=== PATIENT | male | born 1945 | race Caucasian/White ===

== ENCOUNTER 2019-01-08 17:05 | Emergency (ER) | payer MEDICARE, OTHER ==
[~2019-01-08] VITALS: Ht 182.9 cm; Wt 102.3 kg
[2019-01-08 17:13] VITALS: Ht 182.9 cm; Wt 102.3 kg
[2019-01-08] MEDS ORDERED: CYMBALTA30 MG (17:15)
[2019-01-08] MEDS ORDERED: LIPITOR20 MG (17:15)
[2019-01-08] MEDS ORDERED: VITAMIN B-12500 MCG (17:15)
[2019-01-08] MEDS ORDERED: BAYER CHEWABLE81 MG (17:15)
[2019-01-08] MEDS ORDERED: LASIX40 MG (17:15)
[2019-01-08] MEDS ORDERED: NORVASC10 MG (17:15)
[2019-01-08] MEDS ORDERED: ISOSORBIDE MONO30 M1 (17:16)
[2019-01-08] MEDS ORDERED: LISINOPRIL40 MG (17:16)
[2019-01-08] MEDS ORDERED: PROVERA10 MG (17:16)
[2019-01-08] MEDS ORDERED: CLARITIN 10 MG10 MG (17:16)
[2019-01-08] MEDS ORDERED: HYTRIN5 MG (17:17)
[2019-01-08] MEDS ORDERED: KLOR-CON 1010 MEQ (17:17)
[2019-01-08 21:41] VITALS: BP 168/82
== END 2019-01-08 20:54 ==
LOC: D.ER 17:05
DX: S00.83XA Contusion of other part of head, initial encounter (principal); Y09 Assault by unspecified means; Y92.129 Unspecified place in nursing home as the place of occurrence of the external cause; E11.9 Type 2 diabetes mellitus without complications; I11.0 Hypertensive heart disease with heart failure; I50.9 Heart failure, unspecified

== ENCOUNTER 2019-02-14 16:32 | Inpatient (IN) | payer MEDICARE, OTHER ==
[~2019-02-14] VITALS: Ht 182.9 cm; Wt 107.5 kg
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
[~2019-02-14 16:32] MED LIST: BAYER CHEWABLE81 MG; CLARITIN 10 MG10 MG; CYMBALTA30 MG; HYTRIN5 MG; ISOSORBIDE MONO30 M1; KLOR-CON 1010 MEQ; LASIX40 MG; LIPITOR20 MG; LISINOPRIL40 MG; NORVASC10 MG; PROVERA10 MG; VITAMIN B-12500 MCG
[2019-02-14 17:07] LABS: BASOPHILS 0.3 % (0-2); EOSINOPHILS 2.8 % (0-7); HEMATOCRIT 39.7 % (42.0-54.0); HEMOGLOBIN 13.4 g/dL (13.5-17.5); IMMATURE GRANULOCYTES 0.3 % (0-5); LYMPHOCYTES 16.6 % (15-50); MCH 30.9 pg (26.0-34.0); MCHC 33.8 g/dL (31.0-37.0); MCV 91.5 fL (80.0-100.0); MEAN PLATELET VOLUME 9.7 fL (7.4-10.4); MONOCYTES 11.6 % (2-11); NEUTROPHILS 68.4 % (40-80); PLATELET COUNT 219 10x3/uL (130-400); RBC 4.34 10x6/uL (4.20-6.10); RDW 14.1 % (11.5-14.5); WBC 11.6 10x3/uL (4.8-10.8)
[2019-02-14 17:18] LABS: ANION GAP 11.1 mmol/L (8-16); CALCIUM 8.6 mg/dL (8.5-10.1); CARBON DIOXIDE 28.8 mmol/L (21.0-32.0); CREATININE - SERUM 1.3 mg/dL (0.6-1.3); POTASSIUM - SERUM 3.9 mmol/L (3.5-5.1)
[2019-02-14 17:50] LABS: ALBUMIN 2.8 g/dL (3.4-5.0); BILIRUBIN - TOTAL 0.6 mg/dL (0.2-1.3); PROTEIN - SERUM 5.9 g/dL (6.4-8.2); THYROID STIMULATING HORMONE 2.11 uIU/mL (0.36-3.74)
[2019-02-14 19:42] LABS: UDS - AMPHET NEGATIVE QUAL (NEGATIVE); UDS - BARB NEGATIVE QUAL (NEGATIVE); UDS - BENZO NEGATIVE QUAL (NEGATIVE); UDS - COCAINE NEGATIVE QUAL (NEGATIVE); UDS - OPIATE NEGATIVE QUAL (NEGATIVE); UDS - PCP NEGATIVE QUAL (NEGATIVE); UDS - THC NEGATIVE QUAL (NEGATIVE)
[2019-02-14 19:45] LABS: APPEARANCE CLEAR (CLEAR); BILIRUBIN NEGATIVE (NEGATIVE); COLOR YELLOW (YELLOW); GLUCOSE NEGATIVE (NEGATIVE); KETONE NEGATIVE (NEGATIVE); NITRITE NEGATIVE (NEGATIVE); PROTEIN NEGATIVE (NEGATIVE); SPECIFIC GRAVITY 1.015 (1.005-1.020); UROBILINOGEN NORMAL (NORMAL)
--- NOTE | 2019-02-14 20:04 | NUR ---
SPOKE W/KALA RN IN [facility] FOR PLACEMENT AND CHART FAXED.
--- NOTE | 2019-02-14 20:49 | NUR ---
PT ACCEPTED BY [facility]-TERM, DR. HAYNES, PER KALA WHITEHEAD.
[2019-02-14 23:07] VITALS: BP 126/80; BMI 30.9
[2019-02-14 23:26] LABS: CHOL - HDL RATIO 2.8 ratio (2.3-4.9); LDL-HDL RATIO 1.5 ratio (1.5-3.5)
[2019-02-14] MEDS ORDERED: LISINOPRIL20 MG PO (23:45)
[2019-02-14] MEDS ORDERED: PRADAXA150 MG PO (23:46)
[2019-02-14] MEDS ORDERED: OPTIVE SENSITI1 EACH EACH EYE (23:46)
[2019-02-14] MEDS ORDERED: COREG12.5 MG PO (23:48)
[2019-02-14] MEDS ORDERED: VITAMIN D31000 UNIT PO (23:48)
[2019-02-14] MEDS ORDERED: DEPAKENE 2250 MG/5 M (23:52)
[2019-02-14] MEDS ORDERED: FOLIC ACID1 MG PO (23:54)
[2019-02-14] MEDS ORDERED: LASIX40 MG PO (23:54)
[2019-02-14] MEDS ORDERED: GABAPENTIN100 MG PO (23:56)
[2019-02-14] MEDS ORDERED: ADVIL200 MG PO (23:56)
[2019-02-15] MEDS ORDERED: HUMULIN N100 U/ML SC ×2 (00:01→00:02)
[2019-02-15] MEDS ORDERED: COMBIVENT RESPIM4 GM INH (00:03)
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
[2019-02-15 08:00] VITALS: BP 120/82
[2019-02-15 08:42] VITALS: Ht 182.9 cm; Wt 107.5 kg
--- NOTE | 2019-02-15 16:20 | NUR ---
PT IS AWAKE AND ALERT TO SELF ONLY. CALM AND COOPERATIVE WITH ASSESSMENT. PRESCRIBED MEDS PROVIDED ORDERED. MED COMPLIANT. NO AGGRESSION NOTED AT THIS TIME. PT IS VERY CONFUSED AND DEMANDS TO GO HOME AT THIS TIME. ABLE TO REDIRECT. REDIRECT AND REORIENT ORDERED. FALL PRECAUTIONS IN PLACE. WILL CPOC.
--- NOTE | 2019-02-15 17:11 | NUR ---
SPOKE WITH DR. GRACE ABOUT PT LASIX ORDER AND INSULIN ORDER. PHARMACY CALLED ABOUT ORDERS. DR. GRACE NEW ORDER: LOW DOSE SLIDING SCALE WITH HUMALOG R. NPH 25 UNITS DAILY AND NPH 50 UNITS HS. WILL OBTAIN PT BLOOD SUGAR AC AND HS. WILL BEGIN BLOOD SUGARS AT 1700.
[2019-02-15 20:00] VITALS: BP 151/58
--- NOTE | 2019-02-15 23:41 | NUR ---
B) Patient is alert and oriented to person and place, very [place], calm and cooperative this shift I) Administered scheduled medications as ordered, assisted as needed, R) Mediation compliant, pleasant toward staff, P) Continue plan of care.
[2019-02-16 05:16] LABS: RAPID PLASMA REAGIN Non Reactive (Non Reactive)
--- NOTE | 2019-02-16 05:57 | NUR ---
fsbs 57. HOLLAND CRACKERS, PEANUT BUTTER AND MILK GIVEN TO PATIENT.
--- NOTE | 2019-02-16 06:33 | NUR ---
FSBS RECHECKED AT 77.
[2019-02-16 06:36] LABS: BASOPHILS 0.4 % (0-2); EOSINOPHILS 3.4 % (0-7); HEMATOCRIT 44.7 % (42.0-54.0); HEMOGLOBIN 15.1 g/dL (13.5-17.5); IMMATURE GRANULOCYTES 0.3 % (0-5); MCHC 33.8 g/dL (31.0-37.0); MCV 91.8 fL (80.0-100.0); MONOCYTES 12.1 % (2-11); NEUTROPHILS 62.8 % (40-80); PLATELET COUNT 222 10x3/uL (130-400); RBC 4.87 10x6/uL (4.20-6.10); RDW 14.3 % (11.5-14.5); WBC 11.9 10x3/uL (4.8-10.8)
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
[2019-02-16 11:30] VITALS: BP 120/72
--- NOTE | 2019-02-16 16:18 | NUR ---
CONFUSED AND DISORIENTED.COMPLIANT WITH STAFF AND MEDS.NO AGGRESSION OBSERVED.APPETITE GOOD.WHEELS SELF IN WHEELCHAIR.WILL CONTINUE WITH CURRENT PLAN OF CARE,MONITOR FOR SAFETY AND CHANGES.
[2019-02-16 20:28] VITALS: BP 145/100
--- NOTE | 2019-02-17 00:23 | NUR ---
B)SITTING IN THE DAYROOM IN A WHEELCHAIR. PT IS MOBILE IN THE WHEELCHAIR. CONFUSED AND DISORIENTED. PLEASANT AND COOPERATIVE WITH STAFF. I)ADMINISTER MEDS AND MONITOR COMPLIANCE. OBSERVE FOR AGGRESSIVE BEHAVIORS AND REDIRECT NEEDED. R)MED COMPLIANT. REMAINS COOPERATIVE WITH STAFF AND NO AGGRESSION OBSERVED AT THIS TIME. P)CONTINUE POC AND PROVIDE SAFE ENVIRONMENT.
[2019-02-17 09:56] VITALS: BP 110/77
--- NOTE | 2019-02-17 11:12 | NUR ---
Nutrition Follow-up: Diet: Diabetic, thin liquids PO intake: ~68% average x last 6 meals No BM recorded since admit x 3 days now. WT: 227.2# (02/15/19) Meds noted: novolin/humulin NPH, SSI, lasix. Labs noted: POC Glu 215. Continue current nutrition regimen. RD following.
--- NOTE | 2019-02-17 14:24 | NUR ---
ALERT, CALM, AGITATED MOOD BUT COOPERATIVE WITH STAFF. NO AGGRESSION NOTED. MEDS ADMIN PER ORDERS WITH COMPLETE MED COMPLIANCE NOTED. CONT POC DIRECTED.
--- NOTE | 2019-02-17 15:22 | PN ---
PATIENT:RODGER OLIVEROS MEDICAL RECORD: [id number] LOCATION:MELISSA Warren ADMISSION DATE: 02/14/19 PROGRESS NOTE DATE OF SERVICE: 02/16/2019 SUBJECTIVE: The patient's case was discussed with staff. He has no new complaint. OBJECTIVE: The patient is significantly and very seriously confused. He has what is obviously an advanced dementia. He has had no aggression here, but then I suspect that this particular setting is one that enables him to be constantly supervised and redirected. He does become easily irritated, but there is staff that can redirect him fairly quickly. ASSESSMENT: Vascular dementia. PLAN: The patient will be treated with a higher dose of Cymbalta. Other medications will be maintained. TRANSINT:[id number] Voice Confirmation ID: [id number] DOCUMENT ID: [id number] ELLIE SAEZ MD at 1522 CC: [id number] DICTATION DATE: 02/16/19 1005 MESH MAN: 02/16/19 1031 ADM IN [place] [id number] [place] [address]
[2019-02-17 20:00] VITALS: BP 107/67
--- NOTE | 2019-02-17 21:16 | NUR ---
PATIENT IS CONFUES, FLAT AFFECT, DOES NOT MAKE NEEDS KNOWN, SEEMS NOT TO TRUST STAFF WHILE HAVING HIS BLOOD GLUCOSE CHECKED, NO AGGRESSION NOTED. DOES NOT MAKE NEEDS KNOWN. COMPLIANT WITH MEDS. WILL FOLLOW POC
[2019-02-18 08:02] VITALS: BP 112/84
--- NOTE | 2019-02-18 10:34 | NUR ---
ALERT, CALM, COOPERATIVE, PRESENT FOR GROUP WITH LITTLE PARTICIPATION NOTED, COMPLIANT WITH MEDS, NO AGGRESSION, COOPERATIVE WITH POC. CONT POC DIRECTED.
--- NOTE | 2019-02-18 14:14 | PN ---
PATIENT:RODGER OLIVEROS MEDICAL RECORD: [id number] LOCATION:MELISSA Warren ADMISSION DATE: 02/14/19 PROGRESS NOTE DATE OF SERVICE: 02/17/2019 SUBJECTIVE: The patient's case was discussed with staff. He has no new complaint. OBJECTIVE: The patient is sleeping and eating reasonably well. He has been somewhat irritable, but the staff has managed to redirect him appropriately. In a less structured environment, I am not sure how those instances would have ended, probably they would have ended with some serious agitation. ASSESSMENT: Vascular dementia. PLAN: I am going to start the patient on Namenda for his cognitive impairment. He will be monitored for clinical changes associated with its use. His long-term prognosis is guarded. TRANSINT:[id number] Voice Confirmation ID: [id number] DOCUMENT ID: [id number] ELLIE SAEZ MD at 1414 CC: [id number] DICTATION DATE: 02/17/19 1543 CHEMISTRY SPECIALIST: 02/18/19 0007 ADM IN [place] [id number] [place] [address]
[2019-02-18 20:10] VITALS: BP 145/91
--- NOTE | 2019-02-18 21:38 | NUR ---
RECEIVED IN DAYROOM. RESTING IN RECLINER WITH EYES CLOSED. RESPONDS TO VOICE. CALM AND COOPERATIVE WITH CARE AND ASSESSMENT. NO AGGRESSIVE BEHAVIOR. REDIRECT AND REORIENT NEEDED. CONTINUES TO REST WITH EYES CLOSED AT THIS TIME. CONTINUE PLAN OF CARE.
[2019-02-19 06:54] LABS: BASOPHILS 0.7 % (0-2); HEMATOCRIT 36.5 % (42.0-54.0); HEMOGLOBIN 12.5 g/dL (13.5-17.5); IMMATURE GRANULOCYTES 0.3 % (0-5); LYMPHOCYTES 29.7 % (15-50); MCHC 34.2 g/dL (31.0-37.0); MCV 90.6 fL (80.0-100.0); MEAN PLATELET VOLUME 9.6 fL (7.4-10.4); NEUTROPHILS 52.3 % (40-80); PLATELET COUNT 236 10x3/uL (130-400); RBC 4.03 10x6/uL (4.20-6.10); RDW 14.1 % (11.5-14.5)
[2019-02-19 08:00] VITALS: BP 98/64
--- NOTE | 2019-02-19 08:51 | NUR ---
The patient is awake and alert. Rechecked his fsbs 115 now. He is in a w/c and at the breakfast table, hopefully he will eat more today. He self propels in a w/c and he can transfer from chair to bed or chair to toilet. Provide prescribed meds. He is compliant with meds. Continue POC.
--- NOTE | 2019-02-19 13:05 | PN ---
PATIENT:RODGER OLIVEROS MEDICAL RECORD: [id number] LOCATION:MELISSA Warren ADMISSION DATE: 02/14/19 PROGRESS NOTE DATE OF SERVICE: 02/18/2019 SUBJECTIVE: The patient's case was discussed with staff. He has no new complaint. OBJECTIVE: The patient has been somewhat irritable, but reasonably redirectable. Staff is making every effort to approach him in a very calm and methodical way. ASSESSMENT: Vascular dementia. PLAN: Additional history has been obtained. The patient has a very serious case of PTSD. 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 He has a history of alcohol abuse. He has been diagnosed with dementia for a while and has been quite aggressive with those around him. TRANSINT:[id number] Voice Confirmation ID: [id number] DOCUMENT ID: [id number] ELLIE SAEZ MD at 1305 CC: [id number] DICTATION DATE: 02/18/19 1552 WIND ENERGY ENGINEER: 02/19/19 0040 ADM IN [place] [id number] [place] [address]
--- NOTE | 2019-02-19 19:52 | NUR ---
RECEIVED IN DAYROOM. SITTING IN A RECLINER WITH PEERS AT HIS SIDE. CALM AND COOPERATIVE WITH CARE AND ASSESSMENT. NO SIGNS OF AGGRESSION. REDIRECT AND REORIENT NEEDED. RESTING QUIETLY IN A CHAIR AT THIS TIME. CONTINUE PLAN OF CARE
[2019-02-19 20:24] VITALS: BP 117/72
[2019-02-20 06:31] LABS: ANION GAP 9.9 mmol/L (8-16); CALCIUM 8.3 mg/dL (8.5-10.1); CARBON DIOXIDE 29.9 mmol/L (21.0-32.0); CREATININE - SERUM 1.1 mg/dL (0.6-1.3); POTASSIUM - SERUM 3.8 mmol/L (3.5-5.1)
[2019-02-20 08:17] VITALS: BP 161/98
--- NOTE | 2019-02-20 14:43 | NUR ---
PT SITTING IN RECLINER AT THIS TIME. PT IS VERY QUIET. TENDS TO KEEP TO HIMSELF. CAN MAKE SOME NEEDS KNOWN. PT TRANFERS SELF AND PROPELS IN A W/C. NO AGGRESIVE BEHAVIOR NOTED. COMPLIANT WITH MEDS, STAFF AND ASESSMENTS. CHAIR ALARM IN PLACE AND ACTIVE. WILL CONT PLAN OF CARE.
--- NOTE | 2019-02-20 19:14 | NUR ---
RECEIVED IN DAYROOM. RESTING IN RECLINER WITH EYES OPEN. CALM AND COOPERATIVE WITH CARE AND ASSESSMENT. NO AGGRESSIVE BEHAVIOR. REDIRECT AND REORIENT NEEDED. WATCHING TV AT THIS TIME. CONTINUE PLAN OF CARE.
[2019-02-20 20:29] VITALS: BP 92/57
[2019-02-21 10:23] VITALS: BP 143/88
--- NOTE | 2019-02-21 12:15 | NUR ---
PATIENT YELLING AT STAFF, EXPERIENCING AGITATION AND ANXIETY. ATIVAN 0.5 MG TAB ADMIN PO FOR ANXIETY.
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
--- NOTE | 2019-02-21 13:49 | PN ---
PATIENT:RODGER OLIVEROS MEDICAL RECORD: [id number] LOCATION:MELISSA Warren ADMISSION DATE: 02/14/19 PROGRESS NOTE DATE OF SERVICE: 02/20/2019 SUBJECTIVE: The patient's case was discussed with staff. He has no new complaint. OBJECTIVE: The patient is in good behavioral control. He has limited insight about his condition. He is tolerating his medicines well. ASSESSMENT: Vascular dementia. PLAN: Brief supportive and educational interventions were made. Long-term prognosis is guarded. TRANSINT:[id number] Voice Confirmation ID: [id number] DOCUMENT ID: [id number] ELLIE SAEZ MD at 1349 CC: [id number] DICTATION DATE: 02/20/19 1236 ETHYLBENZENE OXIDIZER: 02/20/19 1329 ADM IN [place] [id number] [place] [address]
--- NOTE | 2019-02-21 13:49 | PN ---
PATIENT:RODGER OLIVEROS MEDICAL RECORD: [id number] LOCATION:MELISSA Warren ADMISSION DATE: 02/14/19 PROGRESS NOTE DATE OF SERVICE: 02/19/2019 SUBJECTIVE: The patient's case was discussed with staff. He has no new complaint. OBJECTIVE: The patient is in good behavioral control, but somewhat angry and irritable. ASSESSMENT: Vascular dementia. PLAN: Current medicines have been reviewed and will be maintained. Long-term prognosis is guarded. TRANSINT:[id number] Voice Confirmation ID: [id number] DOCUMENT ID: [id number] ELLIE SAEZ MD at 1349 CC: [id number] DICTATION DATE: 02/19/19 1403 PREPAROLE COUNSELING AIDE: 02/19/19 1451 ADM IN [place] [id number] [place] [address]
--- NOTE | 2019-02-21 15:38 | NUR ---
PATIENT CALM AT THIS TIME, AMBULATING IN W/C. PLEASANT, NO FURTHER BEHAVIORAL ISSUES. COMPLIANT WITH MEDS. CONT POC DIRECTED.
[2019-02-21 20:31] VITALS: BP 111/76
--- NOTE | 2019-02-21 21:01 | NUR ---
RECEIVED IN DAYROOM. SITTING IN A RECLINING CHAIR WITH PEERS AT HIS SIDE. CALM AND COOPERATIVE WITH CARE AND ASSESSMENT. NO SIGNS OF AGGRESSION. REDIRECT AND REORIENT NEEDED. RESTING IN BED WITH EYES CLOSED AT THIS TIME. CONTINUE PLAN OF CARE
[2019-02-22 10:10] VITALS: BP 135/70
--- NOTE | 2019-02-22 14:35 | NUR ---
ALERT, CALM, DEMANDING AND CONFUSED. COMPLIANT WITH MEDICATIONS. UNSTEADY GAIT, USES W/C FOR AMBULATION. RAISES VOICE AT STAFF AT TIMES, HOWEVER IS RE-DIRECTABLE. CONT POC DIRECTED.
[2019-02-22 22:07] VITALS: BP 130/64
--- NOTE | 2019-02-23 01:05 | NUR ---
B) Patient is alert and oriented to person and place, calm and cooperative this shift, I) Administered scheduled medications as ordered, assisted with needs, R) Mediation compliant, quiet and keeps to himself P) Continue plan of care.
--- NOTE | 2019-02-23 09:41 | PN ---
PATIENT:RODGER OLIVEROS MEDICAL RECORD: [id number] LOCATION:MELISSA Warren ADMISSION DATE: 02/14/19 PROGRESS NOTE DATE OF SERVICE: 02/22/2019 SUBJECTIVE: The patient's case was discussed with staff. He has no new complaint. OBJECTIVE: The patient denies that he would seek to harm himself or others. He is in good behavioral control. He has been somewhat irritable and has yelled out at staff a few times, but it was not something that could not be redirected reasonably. ASSESSMENT: Vascular dementia. PLAN: I have reviewed this patient's current medicines and will maintain them. I think the Klonopin has significantly calmed him, although I do have reservations about its long-term use. TRANSINT:[id number] Voice Confirmation ID: [id number] DOCUMENT ID: [id number] ELLIE SAEZ MD at 0941 CC: [id number] DICTATION DATE: 02/22/19 1548 SKIFF OPERATOR: 02/23/19 0124 ADM IN [place] [id number] [place] [address]
--- NOTE | 2019-02-23 10:00 | NUR ---
B) PATIENT IS AWAKE AND ALERT TO PERSON AND PLACE. CALM AND COOPERATIVE WITH CARE AND ASSESSMENT. I) ADMINISTER PRESCRIBED MEDICATIONS. MONITOR FOR SAFETY. R) COMPLIANT WITH MEDICATIONS. REDIRECT AND REORIENT NEEDED. P) CONTINUE PLAN OF CARE.
[2019-02-23 10:05] VITALS: BP 138/88
--- NOTE | 2019-02-23 19:28 | NUR ---
RECEIVED IN DAYROOM. RESTING IN A RECLINING CHAIR. CALM AND COOPERATIVE WITHC ARE AND ASSESSMENT. NO STATEMENTS OF SELF HARM VOICED THIS EVENING. ENCOURAGE TO EXPRESS NEEDS. RESTING IN BED WITH EYES CLOSED. CONTINUE PLAN OF CARE
[2019-02-23 20:29] VITALS: BP 113/56
[2019-02-24 09:50] VITALS: BP 136/93
--- NOTE | 2019-02-24 12:19 | NUR ---
PT FSBS 477 MG/DL. SPOKE WITH DR. GRACE ALL NPH ORDERS. PT IS EATING 100%. 12 UNITS GIVEN OF REGULAR INSULIN GIVEN. WILL RECHECK.
--- NOTE | 2019-02-24 14:21 | PN ---
PATIENT:RODGER OLIVEROS MEDICAL RECORD: [id number] LOCATION:MELISSA Warren ADMISSION DATE: 02/14/19 PROGRESS NOTE DATE OF SERVICE: 02/23/2019 SUBJECTIVE: The patient's case was discussed with staff. He has no new complaint. OBJECTIVE: The patient is in good behavioral control. He has limited insight about his condition. He has not been aggressive today. ASSESSMENT: Vascular dementia. PLAN: The patient seems to be significantly calmer with the addition of the Klonopin from yesterday. I am going to maintain his current medicines today with the exception of the Cymbalta that will be increased. Cymbalta is being used to help with his chronic back pain and hopefully it will aid in improving his mood as well. TRANSINT:[id number] Voice Confirmation ID: [id number] DOCUMENT ID: [id number] ELLIE SAEZ MD at 1421 CC: [id number] DICTATION DATE: 02/23/19 1023 SHEET COMBINING OPERATOR: 02/23/19 1254 ADM IN [place] [id number] [place] [address]
--- NOTE | 2019-02-24 16:20 | NUR ---
Nutrition Follow-up: Diet: Diabetic PO intake: ~70% average x last 9 meals Last BM: 02/21/19 x 2. WT: 228# (02/20/19); Admit wt: 227.2# (02/14/19) Meds noted: megace, SSI, NPH, lasix. Labs noted: Glu 453mg/dL! Continue current diet. RD following.
--- NOTE | 2019-02-24 16:49 | NUR ---
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 He keeps standing and going by the double doors and trying to sit and wait for staff to let him through or he tries to punch the code box. When you try to redirect him he gets irritable. He also says he wants to go to bed. The patient is in a w/c and he self propels. Provide prescribed meds. The patient is compliant with meds. Continue POC.
--- NOTE | 2019-02-24 21:10 | NUR ---
FSBS 440. REPEATED WITH RESULT OF 464. STAT GLUCOSE ORDERED.
--- NOTE | 2019-02-24 21:40 | NUR ---
SPOKE WITH DR GRACE. LAB GLUCOSE WAS 395. DR GRACE ORDERED TO FOLLOW INSULIN S/S AND REPEAT FSBS IN 4 HOURS.
--- NOTE | 2019-02-24 22:47 | NUR ---
RECEIVED PATIENT IN THE DAY/DINING ROOM. MOBILE IN WHEELCHAIR. FREQUENTLY SITS AT DOOR WANTING TO GO TO HIS ROOM. CONFUSED AND DISORIENTED. FOUND PATIENT IN ROOM 1132. EXPLAINED TO PATIENT HIS ROOM IS 1130 AND ASSISTED TO HIS ROOM. ADMINISTER MEDS AND MONITOR COMPLIANCE. REORIENT NEEDED. MED COMPLIANT. POOR REORIENTATION DUE TO IMPAIRED ABILITY TO PROCESS AND RETAIN INFORMATION. CONTINUE POC AND PROVIDE SAFE ENVIRONMENT.
[2019-02-25 00:28] VITALS: BP 166/60
[2019-02-25 09:04] VITALS: BP 163/97
--- NOTE | 2019-02-25 12:40 | NUR ---
The patient is awake and he defacated on himself, he was trying to get up to the bathroom, but he did not make it. Assisted him to the shower where he received a shower and a shampoo. He is aggreeable. He has not shown any aggression this am, he has been in groups and activities. Provide prescribed meds. The patient is compliant with meds. His FSBS was 375, see MAR for insulin given. He self propels in the w/c he needs assist to transfer today. Continue POC.
--- NOTE | 2019-02-25 16:20 | PN ---
PATIENT:RODGER OLIVEROS MEDICAL RECORD: [id number] LOCATION:MELISSA Warren ADMISSION DATE: 02/14/19 PROGRESS NOTE DATE OF SERVICE: 02/24/2019 SUBJECTIVE: The patient's case was discussed with staff. He has no new complaint. OBJECTIVE: The patient has been very difficult to redirect. He screams and he is agitated easily. Staff was able to redirect him without an incident, but I attribute that to their scale and handling him. At this point, I think there is no choice but to increase his Geodon to 40 mg daily. ASSESSMENT: Vascular dementia. PLAN: The Geodon is going to be increased secondary to the level of agitation that the patient is experiencing. The goal will be to make him manageable in a long-term. He is already in a behavioral long-term and he is still having behaviors that are unmanageable there. If he cannot be managed in [facility], there really are no options for him since this is a facility that takes the most behaviorally disturbed of this population. TRANSINT:[id number] Voice Confirmation ID: [id number] DOCUMENT ID: [id number] ELLIE SAEZ MD at 1620 CC: [id number] DICTATION DATE: 02/24/19 1612 COMPUTER TECHNICAL SUPPORT SPECIALIST: 02/25/19 0301 ADM IN [place] [id number] [place] [id number]
--- NOTE | 2019-02-25 18:21 | NUR ---
Noted on the patient's left foot third digit he has a small eraser sized open area. The patient c/o pain to the toe. Let Dr. Reeves be aware and she ordered a wound care consult.
[2019-02-25 20:00] VITALS: BP 122/75
--- NOTE | 2019-02-26 00:02 | NUR ---
B) Patient is alert and oriented to person and place, calm and cooperative this shift I) Administered scheduled medications as ordered, monitored for safety R) Mediation compliant, follows instructions, assists with transfers P) Continue plan of care.
[2019-02-26 09:09] VITALS: BP 177/96
--- NOTE | 2019-02-26 13:58 | PN ---
PATIENT:RODGER OLIVEROS MEDICAL RECORD: [id number] LOCATION:MELISSA Warren ADMISSION DATE: 02/14/19 PROGRESS NOTE DATE OF SERVICE: 02/25/2019 SUBJECTIVE: The patient's case was discussed with staff. He has no new complaint. OBJECTIVE: The patient is in good behavioral control with limited insight about his situation. ASSESSMENT: Vascular dementia. PLAN: Current medicines have been reviewed and will be maintained. Long-term prognosis is guarded. TRANSINT:[id number] Voice Confirmation ID: [id number] DOCUMENT ID: [id number] ELLIE SAEZ MD at 1358 CC: [id number] DICTATION DATE: 02/25/19 1659 GLASS BELT SANDER: 02/25/19 1843 ADM IN [place] [address] [place] [address]
--- NOTE | 2019-02-26 15:03 | NUR ---
ALERT, CALM, COOPERATIVE, COMPLIANT WITH MEDS, FOLLOWS INSTRUCTIONS. NO ADVERSE BEHAVIORS NOTED. CONT POC DIRECTED.
[2019-02-26 19:51] VITALS: BP 120/71
--- NOTE | 2019-02-26 21:02 | NUR ---
B.) PT IS ALERT AND ORIENTED TO SELF ONLY. HE HAS POOR INSIGHT INTO HIS SITUATION. HE IS ABLE TO SELF PROPEL IN HIS WHEELCHAIR. HE IS COMPLIANING OF HIS BUTTOCK HURTING FROM SITTING IN HIS CHAIR ALL DAY. HE IS PLEASANT WITH STAFF AND PEERS. I.) PROVIDED PM MEDICATIONS. REDIRECT OFTEN. R.) COMPLIANT WITH ALL MEDICATIONS. EASY TO REDIRECT. P.) WILL CONTINUE TO MONITOR.
[2019-02-27 08:00] VITALS: BP 171/112
--- NOTE | 2019-02-27 11:17 | PN ---
PATIENT:RODGER OLIVEROS MEDICAL RECORD: [id number] LOCATION:MELISSA Warren ADMISSION DATE: 02/14/19 PROGRESS NOTE DATE OF SERVICE: 02/26/2019 SUBJECTIVE: The patient's case was discussed with staff. He has no new complaint. OBJECTIVE: The patient is eating and sleeping well. He is confused and disorganized, but has not been agitated. ASSESSMENT: Vascular dementia. PLAN: The patient will be transitioned out of the hospital soon. His long-term prognosis is guarded. TRANSINT:[id number] Voice Confirmation ID: [id number] DOCUMENT ID: [id number] ELLIE SAEZ MD at 1117 CC: [id number] DICTATION DATE: 02/26/19 1440 ETHANOL MAINTENANCE MECHANIC: 02/26/19 1532 ADM IN [facility] [address] [place] [address]
--- NOTE | 2019-02-27 16:53 | NUR ---
ALERT, CALM, COOPERATIVE, NO AGGRESSION NOTED. MEDS ADMIN PER ORDERS WITH COMPLETE MED COMPLIANCE NOTED. CONT TO BE NON-COMPLIANT WITH DIET, ATTEMPTS TO SNACK BETWEEN MEALS. HOWEVER, RE-DIRECTS EASILY.
[2019-02-27 19:44] VITALS: BP 117/75
--- NOTE | 2019-02-27 21:13 | NUR ---
RECEIVED IN DAYROOM. SITTING IN A RECLINING CHAIR. ASSISTED TO TRANSFERE TO WHEELCHAIR. FBSB OF 478 AND 498 TAKEN. STAT LAB GLUCOSE ORDERED. DOCTOR LESLY CHUNG. LAB GLUCOSE OF 422 RECEIVED. 12 UNITS GIVEN PER SLIDING SCALE. PATIENT MADE ATTEMPT TO EAT MORE FOOD. REDIRECT AND EDUCATED ABOUT HIS BLOOD SUGAR LEVELS. CALM AND COOPERATIVE WITH CARE AND ASSESSMENT. REDIRECT AND REORIENT NEEDED. IN BEDROOM AT THIS TIME. CONTINUE PLAN OF CARE
[2019-02-28 09:38] VITALS: BP 156/106
--- NOTE | 2019-02-28 12:56 | NUR ---
PT IS AWAKE AND ALERT TO SELF ONLY. CALM AND COOPERATIVE WITH ASSESSMENT. PRESCRINED MEDS PROVIDED ORDERED. MED COMPLIANT. PT NONCOMPLIANT WITH DIABETIC DIET. NO AGGRESSION NOTED AT THIS TIME. REDIRECT AND REORIENT NEEDED. FALL PRECAUTIONS IN PLACE. WILL CPOC.
--- NOTE | 2019-02-28 14:00 | PN ---
PATIENT:RODGER OLIVEROS MEDICAL RECORD: [id number] LOCATION:[facility] ADMISSION DATE: 02/14/19 PROGRESS NOTE DATE OF SERVICE: 02/27/2019 SUBJECTIVE: The patient's case was discussed with staff. He has no new complaint. OBJECTIVE: The patient is in good behavioral control. He has poor insight about his situation. ASSESSMENT: Vascular dementia. PLAN: Current medicines have been reviewed and will be maintained. Long-term prognosis is guarded. TRANSINT:[id number] Voice Confirmation ID: [id number] DOCUMENT ID: [id number] ELLIE SAEZ MD at 1400 CC: [id number] DICTATION DATE: 02/27/19 1208 SILVICULTURIST: 02/27/19 1304 ADM IN [place] [id number] [place] [address]
[2019-02-28 20:20] VITALS: BP 148/83
--- NOTE | 2019-02-28 21:43 | NUR ---
B.) PT IS ALERT AND ORIENTED TO SELF ONLY. HE IS AGGITATED AND YELLING AT STAFF WHEN HE TRIES TO STEAL FOOD FROM THE REFRIGERATOR. HIS BLOOD SUGARS HAVE A HIGH TRENDING PATTERN AND LESLY IS AWARE OF IT. I.) PROVIDED PM MEDICATIONS AND INSULIN PRESCRIBED. REDIRECT NEEDED. R.) COMPLIANT WITH ALL MEDICATIONS AND CAN BE DIFFICULT TO REDIRECT AT TIMES. P.) WILL CONTINUE TO MONITOR.
[2019-03-01 08:05] VITALS: BP 166/105
[2019-03-01] MEDS ORDERED: NAMENDA5 MG PO (10:48)
[2019-03-01] MEDS ORDERED: CYMBALTA30 MG PO (10:48)
[2019-03-01] MEDS ORDERED: KLONOPIN0.5 MG PO (10:49)
--- NOTE | 2019-03-01 11:00 | NUR ---
PT BECAME VERY AGGRESSIVE WITH STAFF. PT ATTEMPTS TO EXIT DOUBLE DOORS, WHEN REDIRECTED PT YELLS OUT AT STAFF AND ATTEMPTS TO HIT AT STAFF. PT REDIRECTED AT THIS TIME. PT IS VERY ANXIOUS AND AGGRESSIVE WITH STAFF AND PEERS. WILL CPOC.
--- NOTE | 2019-03-01 12:35 | PN ---
PATIENT:RODGER OLIVEROS MEDICAL RECORD: [id number] LOCATION:[facility] ADMISSION DATE: 02/14/19 PROGRESS NOTE DATE OF SERVICE: 02/28/2019 SUBJECTIVE: The patient's case was discussed with staff. He has no new complaint. OBJECTIVE: The patient denies intent to harm himself or others. He has been fairly angry and agitated, primarily over the staff refusing to allow him free access to food. Explaining to him about his diabetes and blood sugar levels does not really get anywhere. ASSESSMENT: Vascular dementia. PLAN: The patient had an episode of significant anorexia, early in his hospitalization. Clearly no longer seems to be the case. For this reason, I am going to go ahead and discontinue his Megace. TRANSINT:[id number] Voice Confirmation ID: [id number] DOCUMENT ID: [id number] ELLIE SAEZ MD at 1235 CC: [id number] DICTATION DATE: 02/28/19 1517 PATTERN CHART WRITER: 02/28/19 1836 ADM IN [id number] [place] [address]
--- NOTE | 2019-03-01 12:54 | NUR ---
PT ATTEMPTING TO GET IN THE REFRIGERATOR, NONCOMPLIANT WITH DIABETIC DIET. PT BECOMES VERY AGGRESSIVE WITH STAFF UPON REDIRECTION. PT IS THREATHENING TO HARM STAFF AND OTHER PEERS. PT SCREAMING, CUSSING, AND ATTEMPTING TO HIT STAFF. UNABLE TO REDIRECT AT THIS TIME. PRN HALDOL 2MG IM AND ATIVAN 0.5MG IM GIVEN PER DR. SAEZ ORDERS. WILL CPOC.
[2019-03-01 20:16] VITALS: BP 170/94
--- NOTE | 2019-03-01 20:33 | NUR ---
RECEIVED IN DAYROOM. SITTING IN A WHEELCHAIR. CALM AND COOPERATIVE WITH CARE AND ASSESSMENT. NO SIGNS OF AGGRESSION. REDIRECT AND REORIENT NEEDED. RESTING QUIETLY AT THIS TIME. CONTINUE PLAN OF CARE
[2019-03-02 10:09] VITALS: BP 153/94
--- NOTE | 2019-03-02 11:26 | NUR ---
PT BECAME VERY AGGRESSIVE WITH STAFF. PT ATTEMPTS TO HIT STAFF WITH WALKER AT THIS TIME. PT YELLING, CUSSING, AND BEING COMBATIVE WITH STAFF AND PEERS. UNABLE TO REDIRECT AT THIS TIME. HALDOL 2MG IM AND ATIVAN 0.5MG IM GIVEN PER DR. SAEZ PRN ORDER. FALL PRECAUTIOSN IN PLACE. WILL CPOC.
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
[2019-03-02 18:38] LABS: BASOPHILS 0.5 % (0-2); EOSINOPHILS 3.8 % (0-7); HEMATOCRIT 41.6 % (42.0-54.0); HEMOGLOBIN 13.9 g/dL (13.5-17.5); IMMATURE GRANULOCYTES 0.3 % (0-5); LYMPHOCYTES 26.6 % (15-50); MCH 31.3 pg (26.0-34.0); MCHC 33.4 g/dL (31.0-37.0); MCV 93.7 fL (80.0-100.0); MEAN PLATELET VOLUME 9.5 fL (7.4-10.4); MONOCYTES 8.6 % (2-11); NEUTROPHILS 60.2 % (40-80); PLATELET COUNT 248 10x3/uL (130-400); RBC 4.44 10x6/uL (4.20-6.10); RDW 15.5 % (11.5-14.5); WBC 11.1 10x3/uL (4.8-10.8)
[2019-03-02 19:21] LABS: ALBUMIN 3.2 g/dL (3.4-5.0); ANION GAP 15.8 mmol/L (8-16); BILIRUBIN - TOTAL 0.46 mg/dL (0.2-1.3); CALCIUM 8.5 mg/dL (8.5-10.1); CARBON DIOXIDE 22.5 mmol/L (21.0-32.0); CREATININE - SERUM 1.3 mg/dL (0.6-1.3); POTASSIUM - SERUM 4.3 mmol/L (3.5-5.1); PROTEIN - SERUM 6.9 g/dL (6.4-8.2)
[2019-03-02 20:00] VITALS: BP 116/74
--- NOTE | 2019-03-02 23:59 | NUR ---
B.) PT IS ALERT AND ORIENTED TO SELF ONLY. HE IS RECIEVED IN THE DAYROOM IN HIS WHEELCHAIR. HE IS PLEASANT WITH STAFF. HE ONLY HAS MOMENTS OF AGGRESSION WHEN FOOD IS INVOLVED. I.) PROVIDED PM MEDICATIONS. REDIRECTED OFTEN R.) COMPLIANT WITH ALL MEDICATIONS. EASY TO REDIRECT. P.) WILL CONTINUE TO MONITOR.
[2019-03-03 07:00] VITALS: BP 147/92
--- NOTE | 2019-03-03 11:30 | NUR ---
FSBS 403. PT CONT TO BE NON-COMPLIANT WITH DIET. PHYSICIAN NOTIFIED, NO NEW ORDERS NOTED.
--- NOTE | 2019-03-03 12:44 | NUR ---
NUTRITION F/U PT TOLERATING DIABETIC DIET WITH 100% INTAKE RECENT MEALS. WT INCREASE SINCE ADMIT. BM RECORDED ON 03/02. WILL CONTINUE TO MONITOR PO INTAKE AND WT. RD FOLLOWING
--- NOTE | 2019-03-03 13:33 | NUR ---
PATIENT VERBALLY AGGRESSIVE TOWARD ANOTHER PATIENT, RAISING HIS VOICE. HOWEVER PATIENT WAS EASILY RE-DIRECTABLE. COMPLIANT WITH MEDS AND FSBS. NO FURTHER ADVERSE BEHAVIORS NOTED. CONT POC ORDERED.
--- NOTE | 2019-03-03 15:12 | PN ---
PATIENT:RODGER OLIVEROS MEDICAL RECORD: [id number] LOCATION:[facility]EL[facility]SA [facility] ADMISSION DATE: 02/14/19 PROGRESS NOTE DATE OF SERVICE: 03/02/2019 SUBJECTIVE: The patient's case was discussed with staff. He has no new complaint. OBJECTIVE: The patient is a bizarrely agitated over the past 2 days. I suppose by that I mean that his behavior has been good for a long time and we were planning discharge and now it has significantly changed for reasons that are unclear. He was quite aggressive today. At this point, I am reluctant to increase the Geodon further. I have spoken to him about his behaviors, I did not get a good explanation as to why he is behaving this way, but he says he is regretful and will try to do better for whatever that is worth. ASSESSMENT: Vascular dementia. PLAN: At this point, I am going to maintain current medications much to the disapproval of the treatment team, but I will check some baseline labs to make sure there is not a toxic or metabolic abnormality that is responsible for the behavior change, particularly a urinary tract infection, especially since he has not had a urinalysis since admission. I think he is taking sufficient medicine. I am reluctant to increase it further, but he is not manageable in a long-term care setting currently and it may be required that I do some. I have weighed the risks and benefits of this. TRANSINT:[id number] Voice Confirmation ID: [id number] DOCUMENT ID: [id number] ELLIE SAEZ MD at 1512 CC: [id number] DICTATION DATE: 03/02/19 1622 COMPUTER SALESPERSON RETAIL: 03/03/19 0228 ADM IN [facility] [address] [place] [id number]
[2019-03-04 00:17] VITALS: BP 140/95
--- NOTE | 2019-03-04 01:17 | NUR ---
PATIENT IS CONFUSED, CAN GET AGGRESSIVE QUICKLY IF HE FEELS THAT HE IS BEING "BOTHERED", COMPLIANT WITH MEDS, GETS AROUND IN WHEELCHAIR, NO ADVERSE REACTION TO MEDS. WILL MONITOR
[2019-03-04 09:00] VITALS: BP 174/89
--- NOTE | 2019-03-04 12:53 | NUR ---
The patient is awake and alert he is ENTERPRISE. He is exit seeking and he sits by the doors and tries to get out. He is not aggressive and he is pleasant. He sits in a w/c and he self propels. Provide prescribed meds. The patient is compliant with meds. Continue POC.
--- NOTE | 2019-03-04 15:48 | PN ---
PATIENT:RODGER OLIVREOS MEDICAL RECORD: [id number] LOCATION:[facility]ELISSA [facility] ADMISSION DATE: 02/14/19 PROGRESS NOTE DATE OF SERVICE: 03/03/2019 SUBJECTIVE: The patient's case was discussed with staff. He has no new complaint. OBJECTIVE: The patient is calmer today. He has not been agitated or seriously disruptive. ASSESSMENT: Vascular dementia. PLAN: Current medicines have been reviewed and will be maintained. Long-term prognosis is guarded. TRANSINT:[id number] Voice Confirmation ID: [id number] DOCUMENT ID: [id number] ELLIE SAEZ MD at 1548 CC: [id number] DICTATION DATE: 03/03/19 1716 INSTRUCTOR TRAFFIC SAFETY: 03/04/19 0338 ADM IN [id number] [place] [address]
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
[2019-03-04 20:00] VITALS: BP 125/72
--- NOTE | 2019-03-04 20:26 | NUR ---
PATIENT IS QUIET, PLEASANT MOST OF THE TIME, CAN BECOME AGITATED VERY EASLY, DOES NOT LIKE TO SOCILAZE WITH OTHERS, COMPLIANT WITH MEDS, WILL FOLLOW POC
--- NOTE | 2019-03-05 08:33 | NUR ---
The patient is awake and alert he has poor insight into his situation. He is calm and has not shown any aggression. He self propels in a w/c. He can assist to transfer. His left foot has a sore on the third digit toe, his bilateral feet are edematous and red. Encouraged the patient to elevate his feet today. Provide prescribed meds. Continue POC.
[2019-03-05 08:38] VITALS: BP 162/110
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
[2019-03-05 20:32] VITALS: BP 176/96
--- NOTE | 2019-03-05 21:35 | NUR ---
PATIENT IS CONFUSED, GOOD AFFECT THIS EVENING, TALKING WELL WITH THIS NURSE AND SMILING, HE DOES AGITATE EASILY, COMPLIANT WITH MEDS, NEEDS HELP WITH ADL'S, WILL MONITOR
--- NOTE | 2019-03-06 07:50 | NUR ---
PT SITTING IN W/C AWAITING BREAKFAST. NO DISTRESS NOTED. PT IS ALERT TO SELF ONLY, CONFUSION NOTED. PT IS QUIET DOES NOT SOCIALIZE WITH OTHERS OFTEN. ENCOURAGEMENT NEEDED AT TIMES. PT CAN MAKE SOME NEEDS KNOWN. PT IS COMPLIANT WITH MEDS, VITALS AND STAFF. PT SWELLING NOTED TO BILATERAL FEET. ENCOURGE TO PROP FEET UP. PT DOES NOT ALLOW TO STAFF TO PROP FEET UP FOR MORE AN SEVERAL MINUTES. EDUCATION GIVEN AND REDIRECTION ATTEMPTED TO AID IN SWELLING TO FEET. PT DOES NOT VERBALIZE UNDERSTANDING. WILL CONT TO ENCOURAGE. CHAIR ALARM IN PLACE AND ACTIVE. NO BEHAVIORS NOTED FROM PREVIOUS SHIFT.
[2019-03-06 10:04] VITALS: BP 172/99
--- NOTE | 2019-03-06 10:16 | NUR ---
SPOKE WITH PTS . CODEWORD GIVEN. WANTED TO KNOW IF THE INSURANCE COMPLANY WOULD PAY FOR THE DATES AFTER 02/27/2019. AND TO SEE IF THE DOCTOR COULD CALL THE INSURANCE COMPANY AND SEE IF HE COULD WRITE A NOTE TO HELP. NURSE EXPLAINED THAT WE HAVE A PERSON THAT HANDLES OUR INSURANCE AND SHE WOULD PASS THE INFORMATION TO HER SO SHE COULD CALL THE INSURANCE COMPANY. VERBALIZED UNDERSTANDING AND THANKED NURSE.
--- NOTE | 2019-03-06 10:46 | PN ---
PATIENT:RODGER OLIVEROS MEDICAL RECORD: [id number] LOCATION:MELISSA [facility] ADMISSION DATE: 02/14/19 PROGRESS NOTE DATE OF SERVICE: 03/05/2019 SUBJECTIVE: The patient's case was discussed with staff. He has no new complaint. OBJECTIVE: The patient is disorganized. He has poor insight about his situation. ASSESSMENT: Vascular dementia. PLAN: The patient is easily agitated, but also reasonably easily redirected. In a less structured environment that may have a different outcome, but at least at this point, there have not been any significant aggression that would prevent him from being transferred to a lower level of care once that is arranged. TRANSINT:[id number] Voice Confirmation ID: [id number] DOCUMENT ID: [id number] ELLIE SAEZ MD at 1046 CC: [id number] DICTATION DATE: 03/05/19 1223 DRY HEAT CABINET ATTENDANT: 03/05/19 1508 ADM IN [facility] [address] [place] [address]
--- NOTE | 2019-03-06 22:52 | NUR ---
PATIENT IS CONFUSED, QUIET HOWEVER HIS AFFECT IS BRIGHTER, HE SMILES AND TALKS TO THIS NURSE, NEEDS HELP WITH ADL'S. WILL FOLLOW POC
[2019-03-07 02:06] VITALS: BP 180/97
[2019-03-07 07:31] VITALS: BP 164/108
--- NOTE | 2019-03-07 13:23 | PN ---
PATIENT:RODGER OLIVEROS MEDICAL RECORD: [id number] LOCATION:MELISSA [facility] ADMISSION DATE: 02/14/19 PROGRESS NOTE DATE OF SERVICE: 03/06/2019 SUBJECTIVE: The patient's case was discussed with staff. He has no new complaint. OBJECTIVE: The patient is demented, disorganized, and concrete. He has almost no insight about his situation. He has been calm and not aggressive. ASSESSMENT: Vascular dementia. PLAN: Current medicines have been reviewed and will be maintained. Long-term prognosis is guarded. TRANSINT:[id number] Voice Confirmation ID: [id number] DOCUMENT ID: [id number] ELLIE SAEZ MD at 1323 CC: [id number] DICTATION DATE: 03/06/19 1218 SEAM STAYER: 03/07/19 0026 ADM IN [address] [place] [address]
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
[2019-03-07 19:48] VITALS: BP 110/72
--- NOTE | 2019-03-08 00:15 | NUR ---
B.) PT IS ALERT AND ORIENTED TO SELF ONLY. HE IS OFTEN EXIT SEEKING. HE IS AGGRESSIVE WITH FOOD. HE USES A WHEELCHAIR TO AMBULATE. I.) PROVIDED PM MEDICATIONS. REDIRECT OFTEN. R.) COMPLIANT WITH ALL MEDICATIONS. EASY TO REDIRECT. P.) WILL CONTINUE TO MONITOR.
[2019-03-08 08:46] VITALS: BP 121/86
--- NOTE | 2019-03-08 11:15 | NUR ---
PT IS DROWSY THIS MORNING. RESPONDS TO VERBAL STIMULI. CALM AND COOPERATIVE WITH ASSESSMENT AT THIS TIME. PT CAN BE VERY AGGRESSIVE WITH STAFF AND PEERS AT TIMES. REDIRECT AND REORIENT NEEDED. PRESCRIBED MEDS PROVIDED ORDERED. MED COMPLIANT. FALL PRECAUTIONS IN PLACE. WILL CPOC.
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
--- NOTE | 2019-03-08 15:50 | NUR ---
Nutrition Follow-up: Diet: Diabetic AHA thin liquids PO intake: ~78% average x last 6 meals Last BM: 03/08/19 x 2. WT: 165# (03/07/19); Admit wt: 154# (02/15/19) Meds noted: NPH, SSI, lasix. Labs noted: POC Glu 219. Recommend continue current diet. RD following.
--- NOTE | 2019-03-08 22:42 | NUR ---
REC'D SITTING IN THE DAYROOM IN A WHEELCHAIR. 3+ EDEMA NOTED TO BILATERAL LOWER EXTREMITIES. CONFUSED AND DISORIENTED. ABLE TO FOLLOW VERBAL INSTRUCITON. ADMINISTER MEDS AND MONITOR COMPLIANCE. REORIENT NEEDED. MED COMPLIANT. POOR REORIENTATION DUE TO IMPAIRED TO PROCESS AND RETAIN INFORMATION. CONTINUE POC AND PROVIDE SAFE ENVIRONMENT.
[2019-03-08 22:44] VITALS: BP 153/90
[2019-03-09 10:05] LABS: CALCIUM 8.3 mg/dL (8.5-10.1); CARBON DIOXIDE 28.3 mmol/L (21.0-32.0); CREATININE - SERUM 1.2 mg/dL (0.6-1.3); POTASSIUM - SERUM 4.3 mmol/L (3.5-5.1)
[2019-03-09 10:07] LABS: BASOPHILS 0.3 % (0-2); EOSINOPHILS 2.6 % (0-7); HEMATOCRIT 40.3 % (42.0-54.0); HEMOGLOBIN 13.5 g/dL (13.5-17.5); IMMATURE GRANULOCYTES 0.3 % (0-5); LYMPHOCYTES 18.2 % (15-50); MCH 31.1 pg (26.0-34.0); MCHC 33.5 g/dL (31.0-37.0); MCV 92.9 fL (80.0-100.0); MEAN PLATELET VOLUME 9.7 fL (7.4-10.4); MONOCYTES 8.3 % (2-11); NEUTROPHILS 70.3 % (40-80); PLATELET COUNT 219 10x3/uL (130-400); RBC 4.34 10x6/uL (4.20-6.10); WBC 11.1 10x3/uL (4.8-10.8)
--- NOTE | 2019-03-09 11:34 | PN ---
PATIENT:RODGER OLIVEROS MEDICAL RECORD: [id number] LOCATION:MELISSA Storm113 ADMISSION DATE: 02/14/19 PROGRESS NOTE DATE OF SERVICE: 03/08/2019 SUBJECTIVE: The patient's case was discussed with staff. He has no new complaint. OBJECTIVE: The patient is sedated, but arousable. Clearly it is related to the p.r.n. medicine he has received and then the change in his scheduled medication because of his aggression. At this point, it is my opinion, he is over sedated and it is almost certainly related to what he is being given because of his disruptive behaviors. ASSESSMENT: Vascular dementia. PLAN: I am going to reduce his scheduled medicines some. This patient is going to require some level of mild sedation in order to be manageable in a long-term care setting. Efforts to find a nice balance between desired an undesirable effects of the medications have not been successful at this point and I think the balance needs to be slightly in favor of some sedation. Otherwise, he is just completely unmanageable. He is also a very large man, 240 pounds, 6 feet tall and despite his age at 73, he still is quite muscular and strong and is a potential danger to those around him when he is distressed and agitated. TRANSINT:[id number] Voice Confirmation ID: [id number] DOCUMENT ID: [id number] ELLIE SAEZ MD at 1134 CC: [id number] DICTATION DATE: 03/08/19 1539 BLAST FURNACE KEEPER: 03/08/19 2221 ADM IN [id number] [place] [address]
--- NOTE | 2019-03-09 16:30 | NUR ---
ORIENTED TO SELF ONLY.COMPLIANT WITH MEDS.CAN BE ARGUMENTIVE AT TIME.NO AGGRESSION OBSERVED.WILL CONTINUE WITH PLAN OF CARE,MONITOR FOR CHANGES AND SAFETY.
[2019-03-09 16:56] VITALS: BP 159/102
[2019-03-09 20:04] VITALS: BP 134/68
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
[2019-03-10 10:33] VITALS: BP 136/91
--- NOTE | 2019-03-10 10:53 | NUR ---
The patient is awake, he is in a w/c and he self propels. He is irritable this am, he says "I want to go to bed." He stood up from his w/c and yelled "I want to go to bed." Explained to him that he was not able because of the time of day. He got irritable and said "Rules, everywhere rules." Provide prescribed meds. He is compliant with meds. Continue POC.
--- NOTE | 2019-03-10 14:31 | NUR ---
NUTRITION F/U PT TOLERATING DIABETIC DIET WITH 100% INTAKE RECENT MEALS. BM RECORDED 03/10. WT INCREASED FROM ADMIT. WILL CONTINUE TO PROVIDE DIET, MONITOR PO INTAKE AND WT. RD FOLLOWING
--- NOTE | 2019-03-10 15:55 | PN ---
PATIENT:RODGER OLIVEROS MEDICAL RECORD: [id number] LOCATION:MELISSA Warren ADMISSION DATE: 02/14/19 PROGRESS NOTE DATE OF SERVICE: 03/09/2019 SUBJECTIVE: The patient's case was discussed with staff. He has no new complaint. OBJECTIVE: The patient continues to appear sedated. He is certainly not any kind of a behavior problem, but he is also not fully awake. He is arousable, but again sedated in a way that is unacceptable in long-term. His lab today shows a white count of 11,000, his hematocrit is holding steady at 40. He does have some abnormalities in his chemistries with an elevation of his BUN, probably consistent with decreased oral intake. His glucose is moderately high at 165. ASSESSMENT: Vascular dementia. PLAN: At this point, I have reviewed his medications and will decrease the Klonopin slightly. TRANSINT:[id number] Voice Confirmation ID: [id number] DOCUMENT ID: [id number] ELLIE SAEZ MD at 1555 CC: [id number] DICTATION DATE: 03/09/19 1634 BAG SEWER: 03/10/19 0215 ADM IN [facility] [address] [place] [address]
--- NOTE | 2019-03-10 19:42 | NUR ---
CURSING AND YELLING. DEMANDING STAFF WAIT ON HIM IMMEDIATELY. CALLING STAFF NAMES. HALDOL AND ATIVAN PO ADMINISTERED BY Chandan SLADE RN PER PHYSICIAN ORDERS.
--- NOTE | 2019-03-10 19:42 | NUR ---
PT WAS CURSING AND THREATENING. WOULD NOT FOLLOW REDIRECTION. CALLING STAFF NAMES. HALDOL AND ATIVAN PO ADMINISTERED BY Chandan SLADE RN PER PHYSICIAN ORDERS.
[2019-03-10 20:13] VITALS: BP 140/70
--- NOTE | 2019-03-10 21:37 | NUR ---
FSBS 46. PUDDING AND MILK GIVEN TO PATIENT.
--- NOTE | 2019-03-10 22:24 | NUR ---
B)RECEIVED SITTING IN THE DAYROOM. CURSING AND CALLING STAFF NAMES. ORIENTED TO SELF AND PLACE. POOR INSIGHT INTO THE REASON FOR HOSPITALIZATION. 3+-4+ PITTING EDEMA TO LOWER EXTREMITIES. WITHDRAWN AND DOES NOT INTERACT UNLESS INITIATED BY OTHERS. I)ADMINISTER MEDS AND MONITOR COMPLIANCE. REDIRECT FOR AGGRESSIVE DISRUPTIVE BEHAVIOR AND REDIRECT NEEDED. R)MED COMPLIANT. POOR REDIRECTION DUE TO IMPAIRED JUDGEMENT. P)CONTINUE POC AND PROVIDE SAFE ENVIRONMENT.
--- NOTE | 2019-03-11 00:05 | NUR ---
SITTING UP IN WHEELCHAIR DEMANDING TO GET DRESSED. CURSING AND YELLING "CAN I GET SOME HELP IN HERE." POOR REDIRECTION CONTINUES TO YELL AND DISTURB OTHER PATIENTS. HALDOL AND ATIVAN PO ADMINISTERED BY Chandan SLADE RN PER PHYSICIAN ORDERS.
[2019-03-11 07:38] LABS: BASOPHILS 0.4 % (0-2); EOSINOPHILS 6.6 % (0-7); HEMATOCRIT 40.5 % (42.0-54.0); HEMOGLOBIN 13.6 g/dL (13.5-17.5); IMMATURE GRANULOCYTES 0.2 % (0-5); LYMPHOCYTES 27.7 % (15-50); MCH 31.3 pg (26.0-34.0); MCHC 33.6 g/dL (31.0-37.0); MCV 93.1 fL (80.0-100.0); MEAN PLATELET VOLUME 9.4 fL (7.4-10.4); MONOCYTES 11.4 % (2-11); NEUTROPHILS 53.7 % (40-80); PLATELET COUNT 197 10x3/uL (130-400); RBC 4.35 10x6/uL (4.20-6.10)
--- NOTE | 2019-03-11 07:49 | NUR ---
The patient is awake, he is already starting to make demands. He is quiet and sleepy. He is in a penny chair today. Provide prescribed meds. The patient is compliant with meds. Continue POC.
[2019-03-11 11:07] VITALS: BP 174/89
--- NOTE | 2019-03-11 11:40 | NUR ---
Assisted the patient to the [facility], provided a hard copy of the meds and health summary.
--- NOTE | 2019-03-11 11:41 | NUR ---
Called the patient's spouse to let her know the patient just left to go back to the residential.
--- NOTE | 2019-03-11 11:47 | NUR ---
Called report to Bonnie at [facility]. Let her also know that the patient is now on Seroquel 25 mg PO BID.
--- NOTE | 2019-03-11 14:20 | PN ---
PATIENT:RODGER OLIVEROS MEDICAL RECORD: [id number] LOCATION:[facility] ADMISSION DATE: 02/14/19 PROGRESS NOTE DATE OF SERVICE: 03/10/2019 SUBJECTIVE: The patient's case was discussed with staff. He has no new complaint. OBJECTIVE: The patient denies intent to harm himself or others. He is generally tolerating his medicines well. Unfortunately, this afternoon, he became quite agitated and was screaming at staff. They did give him a p.r.n. medication. I suspect what I am seeing now is related to the effects of that medication. I am going to increase the dose of his Klonopin slightly. As mentioned before, this patient is a serious and significant challenge. He is 240 pounds, 6 feet tall and has a very muscular build and an imposing presence. He is easily agitated and a potentially dangerous man in the wrong circumstances. Efforts have been made to modify his behaviors without causing any significant sedation. Those efforts have resulted in several days in a row of good behavior then punctuated by a behavioral incident. This is truly a challenge to bring this man into behavioral control and it is my opinion that he is going to need a behavioral prison. He also needs 26-vrje-t-day supervision of course that is understood relative to all the various issues that are being discussed. He has an advanced dementia, is not capable of making reasonable informed consent decisions about his person or state and must have 50-vrem-n-day supervision. Efforts are being made to make those around him safe when he is angry, agitated and aggressive without doing harm to him through being overmedicated. He is not behaving in this way because of an underlying mood or thinking disorder. He is behaving this way because of an underlying personality style probably or possibly a personality disorder with a superimposed dementia that is causing him to be dis-inhibited. He is a challenging case, and at this point, I must say he is not safe to be discharged. TRANSINT:[id number] Voice Confirmation ID: [id number] DOCUMENT ID: [id number] ELLIE SAEZ MD at 1420 CC: [id number] DICTATION DATE: 03/10/19 162 INTERNET SALESPERSON: 03/10/19 175 DIS IN 03/11/19 [facility] [address] [place] [address]
--- NOTE | 2019-03-12 10:30 | PN ---
PATIENT:RODGER OLIVEROS MEDICAL RECORD: [id number] LOCATION:[facility] ADMISSION DATE: 02/14/19 PROGRESS NOTE DATE OF SERVICE: 03/11/2019 SUBJECTIVE: The patient's case was discussed with staff. He has no new complaint. OBJECTIVE: The patient is in good behavioral control. He has poor insight about his situation. ASSESSMENT: Vascular dementia. PLAN: The patient is going to be transitioned out of the hospital into the retirement today. He did receive p.r.n. Haldol and Ativan last night for some agitation. I am going to discharge him even after having the events of last night. His behaviors are going to intermittently be disruptive and that is just simply how it is going to be. Trying to over control his behaviors will result in sedation and that will lead to falls and/or pneumonia, and I think at this point, this is the best balance between the medications and his behaviors that I can achieve. I understand that if he has seriously disruptive behaviors that the retirement will be forced to send him back and that would be acceptable, he may well need some adjustments. Followup is to be with his primary care retirement physician and I am available for advice and consultation on an informal basis if required. 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
== END 2019-03-11 11:45 | DRG 884 ==
LOC: D.ER 16:32 → D.PSYCH 20:50
PROVIDERS: Family Medicine; ADMIT Psychiatry & Neurology Psychiatry; ATTEND Psychiatry & Neurology Psychiatry
DX: F01.51 Vascular dementia, unspecified severity, with behavioral disturbance (principal); I13.0 Hypertensive heart and chronic kidney disease with heart failure and stage 1 through stage 4 chronic kidney disease, or unspecified chronic kidney disease; J44.9 Chronic obstructive pulmonary disease, unspecified; I50.9 Heart failure, unspecified; Z79.4 Long term (current) use of insulin; F32.9 Major depressive disorder, single episode, unspecified; E11.22 Type 2 diabetes mellitus with diabetic chronic kidney disease; N18.3 Chronic kidney disease, stage 3 (moderate); E55.9 Vitamin D deficiency, unspecified; J30.9 Allergic rhinitis, unspecified; R26.9 Unspecified abnormalities of gait and mobility; D72.829 Elevated white blood cell count, unspecified; E11.40 Type 2 diabetes mellitus with diabetic neuropathy, unspecified; E53.8 Deficiency of other specified B group vitamins; F52.8 Other sexual dysfunction not due to a substance or known physiological condition